=== PATIENT | male | born 1935 | race African-American/Black ===

== ENCOUNTER 2022-05-10 17:04 | Observation (INO) | payer MEDICARE ==
[2022-05-10 17:59] LABS: ALT (SGPT) 38 U/L (8-55); AST (SGOT) 45 U/L (5-34); Albumin 4.2 g/dL (3.4-4.8); Alkaline Phosphatase 86 U/L (40-110); Anion Gap 12 mmol/L (10-20); BUN (Urea Nitrogen) 11 mg/dL (8.4-25.7); Bilirubin, Total 0.8 mg/dL (0.2-1.2); Calc. Creatinine Clearance 0 mL/min (70-130); Carbon Dioxide 26 mmol/L (23-31); Chloride 105 mmol/L (98-107); Estimated GFR 64; Globulin 2.8 g/dL (2.4-3.5); Glucose 84 mg/dL (83-110); Potassium 4.4 mmol/L (3.5-5.1); Sodium 139 mmol/L (136-145)
[2022-05-10 18:14] LABS: PTT 30.4 sec (22.9-36.1); Prothrombin Time 13.3 sec (12.0-14.7)
[2022-05-10 18:28] LABS: #Monocytes 0.4 thou/uL (0.11-0.59); #Neutrophils 3.1 thou/uL (1.40-6.50); %Basophils 0.7 % (0.0-1.0); %Eosinophils 0.8 % (0.0-10.0); %Neutrophils 55.4 % (42.0-75.0); Hemoglobin 16.8 g/dL (14.0-18.0); Lymphocytes 29 % (21-51); MDiff Complete? YES; Mean Corpuscular HGB CONC 34.3 g/dL (32.0-36.0); Mean Corpuscular Hemoglobin 32.8 pg (27.0-31.0); Mean Corpuscular Volume 95.6 fl (78.0-98.0); Mean Platelet Volume 8.1 fL (7.4-10.4); Monocytes 6 % (0-10); Neutrophil 56 % (42-75); Platelet Count 213 10x3/uL (130-400); Platelet Morphology Comment Appears Adequate; Polychromasia SLIGHT = 2-3 cells (100X) (0-2/hpf); RBC Distribution Width 13.7 % (11.5-14.5); Reactive Lymphocytes 8 % (0-10); Red Blood Cell (RBC) Count 5.14 mill/uL (4.70-6.10); White Blood Cell (WBC) Count 5.6 10x3/uL (4.8-10.8)
[2022-05-10] MEDS ORDERED: Acetaminophen 650 MG Suppository PR PRN (18:44)
[2022-05-10] MEDS ORDERED: Senokot S 8.6-50 MG TAB PO PRN (18:44)
[2022-05-10] MEDS ORDERED: Bisacodyl 5 MG TAB PO PRN (18:44)
[2022-05-10] MEDS ORDERED: Ondansetron ODT 4 MG TAB PO PRN (18:44)
[2022-05-10] MEDS ORDERED: Ondansetron PF 4 MG/2 ML Vial IVP PRN (18:44)
[2022-05-10] MEDS ORDERED: Labetalol HCl 100 MG/20 ML VIAL SLOW IVP PRN (18:56)
[2022-05-10 19:41] VITALS: BMI 21.8
[2022-05-10 19:56] LABS: Bilirubin Negative (Negative); Blood, Urine Negative (Negative); Clarity Clear (Clear); Glucose, Urine (Dipstick) Normal (Negative); Ketone, Urine Negative (Negative); Leukocyte Negative Leu/uL (Negative); Nitrite Negative (Negative); Protein, Urine (Dipstick) Negative (Neg-Trace); Specific Gravity, Urine 1.008 (1.002-1.036); Urobilinogen Normal mg/dL (Less than 2)
[2022-05-10] MEDS ORDERED: Atorvastatin Calcium 40 MG TAB PO SCH (21:00)
[2022-05-10] MEDS ORDERED: Famotidine 20 MG TAB ONE (21:05)
[2022-05-10] MEDS: Heparin 5,000 UNITS/ML VIAL SC SCH (21:20)
[2022-05-10] MEDS: Sodium Chloride 0.9% 1,000 ML IV SCH (21:21)
[2022-05-10] MEDS: Famotidine 20 MG TAB PO SCH (21:49)
[2022-05-10] MEDS: Famotidine/PF 20 mg/2ml Vial SLOW IVP SCH (23:05)
[2022-05-10] MEDS: Acetaminophen 325 MG TAB PO PRN (23:17)
[2022-05-10] MEDS ORDERED: Melatonin 3 MG TAB PO SCH (23:30)
[2022-05-11 05:31] LABS: Hemoglobin A1c 5.5 % (4.0-6.0)
[2022-05-11 05:46] LABS: Cardiac Risk 2.4 (Less than 4.5)
[2022-05-11] MEDS ORDERED: Aspirin 81 mg Enteric Coated Tablet PO SCH (09:00)
[2022-05-11] MEDS: Famotidine 20 MG TAB PO SCH (09:03)
[2022-05-11] MEDS: Heparin 5,000 UNITS/ML VIAL SC SCH (09:04)
[2022-05-11] MEDS: Acetaminophen 325 MG TAB PO PRN (09:04)
[2022-05-11] MEDS: Famotidine/PF 20 mg/2ml Vial SLOW IVP SCH (09:04)
[2022-05-11] MEDS ORDERED: Fioricet 325/50/40 mg Tablet PO PRN (11:13)
[2022-05-11] MEDS ORDERED: Fioricet 325/50/40 mg Tablet PO SCH (12:00)
[2022-05-11] MEDS: Sodium Chloride 0.9% 1,000 ML IV SCH (13:13)
[2022-05-11] MEDS ORDERED: Iopamidol 370 76% 100 ML VIAL ONE (15:40)
[2022-05-11 16:39] VITALS: TEMP 99.2
[2022-05-11 17:22] VITALS: BP 153/76
== END 2022-05-11 17:13 | disposition home or self-care (01) ==
LOC: ERS 17:04 → ERHOLD 18:54 → INTOOBSV 18:54 → OBSVTOIN 18:54 → NEURO 22:13
PROVIDERS: ADMIT Family Medicine; ATTEND Family Medicine
DX: G45.9 Transient cerebral ischemic attack, unspecified (principal); I11.9 Hypertensive heart disease without heart failure; I08.3 Combined rheumatic disorders of mitral, aortic and tricuspid valves; Z86.73 Personal history of transient ischemic attack (TIA), and cerebral infarction without residual deficits; Z79.82 Long term (current) use of aspirin; Z79.899 Other long term (current) drug therapy; Z95.0 Presence of cardiac pacemaker; Z20.822 Contact with and (suspected) exposure to COVID-19
CPT/HCPCS: 70450; 70496; 70498; 70551; 71045; 80053; 80061; 81003; 83036; 84443; 84484; 85025; 85610; 85730; 86140; 87086; 93005; 93306; 95712; 95819; 95957; 96372 ×2; 97116; 97530; 99285; G0378 ×3; U0003; U0005; 36415; J1644; J7050; Q9967